=== PATIENT | female | born 1995 | race Caucasian/White ===

== ENCOUNTER 2016-10-15 18:02 | Emergency (ER) | payer OTHER ==
[2016-10-15 18:06] VITALS: BP 122/71; PULSE 72; TEMP 98.4; BMI 25.0
--- NOTE | 2016-10-15 18:21 | PDOC ---
History of Present Illness - General Chief Complaint: Laceration Stated Complaint: LACERATION Time Seen by Provider: 10/15/16 18:11 History Source: Patient Exam Limitations: No Limitations - History of Present Illness Initial Comments: CHIEF COMPLAINT: 21 y/o afebrile female here for laceration to left finger. HISTORY OF PRESENT ILLNESS: The patient states she cut her left ring finger on a sharp edge of her mom's vase. She denies any broken glass or vase pieces. She is UTD on tetanus. She states she cleaned the wound with hydrogen peroxide prior to coming to the ER. She denies numbness/tingling in affected extremity or decreased ROM. Vital signs on arrival are within normal limits. REVIEW OF SYSTEMS: GENERAL/CONSTITUTIONAL: No fever/chills. No weakness. No weight change. MUSCULOSKELETAL: No joint or muscle swelling or pain. No neck or back pain. SKIN: +laceration to left ring finger NEUROLOGIC: No headache, vertigo, loss of consciousness, or loss of sensation. PHYSICAL EXAM: VITAL_SIGNS: within normal limits GENERAL_APPEARANCE: alert, cooperative, mild obvious discomfort. MENTAL_STATUS: speech clear, oriented X 3, responds appropriately to questions. NEURO: motor intact and sensory intact in injured extremity. EXTREMITIES: Full flexion and extension of PIP and DIP of affected finger. 3cm laceration to medial aspect of left 4th digit with active bleeding. SKIN: warm, dry, good color. Past History - Past Medical History Allergies/Adverse Reactions: Allergies Allergy/AdvReac Type Severity Reaction Status Date / Time No Known Allergies Allergy Verified 10/15/16 18:03 - Psycho/Social/Smoking Cessation Hx Anxiety: No Suicidal Ideation: No Smoking History: Never smoked Have you smoked in the past 12 months: No Information on smoking cessation initiated: No Hx Alcohol Use: No Drug/Substance Use Hx: No Substance Use Type: None *Physical Exam - Vital Signs Last Vital Signs Temp Pulse Resp BP Pulse Ox 98.4 F 72 18 122/71 100 10/15/16 18:04 10/15/16 18:04 10/15/16 18:04 10/15/16 18:04 10/15/16 18:04 Procedures - Laceration/Wound Repair Left Medial 4th digit Wound Length: 2.6 to 5.0 cm Wound Explored: clean Wound's Depth, Shape: into muscle, irregular Irrigated w/ Saline: Yes Betadine Prep: Yes Anesthesia: 1% Lidocaine Amount of Anesthetic (ccs): 5 Wound Debrided: moderate Wound Repaired With: Sutures Suture Size/Type: 4:0 Number of Sutures: 6 Medical Decision Making - Medical Decision Making A/P: 21 y/o female with lac to left 4th digit. She is UTD on tetanus and sustained lac on sharp edge of a vase without broken pieces. Pt tolerated suturing well. Will discharge to home with instructions to return to the ER in 8-10 days for suture removal. The patient was instructed to return earlier with any concerning symptoms. The patient verbalizes understanding of all instructions, has no further questions and is awaiting discharge. *DC/Admit/Observation/Transfer Diagnosis at time of Disposition: Laceration of finger Qualifiers: Encounter type: initial encounter Qualified Code(s): S61.219A - Laceration without foreign body of unspecified finger without damage to nail, initial encounter - Discharge Dispostion Disposition: HOME Condition at time of disposition: Improved - Patient Instructions Printed Discharge Instructions: DI for Laceration Repair Additional Instructions: Discharge Instructions: -Keep wound dry for 24 hours; after that wash gently with soap and water -Return to the ER in 8-10 days for suture removal -Return to the ER sooner with any concerning symptoms
== END 2016-10-15 19:15 | disposition home or self-care (01) ==
LOC: JERFT 18:02
PROC: 0HQGXZZ Repair Left Hand Skin, External Approach (ICD-10-PCS; principal; 2016-10-15)
DX: S61.215A Laceration without foreign body of left ring finger without damage to nail, initial encounter (principal); W45.8XXA Other foreign body or object entering through skin, initial encounter; Y93.9 Activity, unspecified; Y92.9 Unspecified place or not applicable
CPT/HCPCS: 12001-25; 99281-25

== ENCOUNTER 2016-10-25 15:10 | Emergency (ER) | payer OTHER ==
[2016-10-25 15:15] VITALS: BP 118/70; PULSE 85; TEMP 98.2; BMI 20.9
--- NOTE | 2016-10-25 15:33 | PDOC ---
Suture Removal/Wound Check HPI - History of Present Illness Chief Complaint: Suture/Staple Removal (other) Stated Complaint: SUTURE/STAPLE REMOVAL Time Seen by Provider: 10/25/16 15:19 History Source: Yes: Patient Exam Limitations: Yes: No Limitations Treated at: [facility] Date of Last ED visit: 10/15/16 - Previous ED Treatment Type of procedure performed on last visit: Yes: Laceration Repair Tetanus Immunization: Yes: Up to Date Past History - Past Medical History Allergies/Adverse Reactions: Allergies No Known Allergies Allergy (Verified 10/25/16 15:12) - Social History Smoking Status: Never smoked Medical Decision Making - Medical Decision Making A/P: 21 y/o afebrile female here for suture removal from her left 4th finger. Pt reports no fevers or redness to affected area. It is day 10 after sutures placed. 6 sutures removed without difficulty. Margins remain intact. Pt has full ROM of finger. Instructed her to return to the ER with any worsening or concerning symptoms. The patient verbalizes understanding of all instructions, has no further questions and is awaiting discharge. *DC/Admit/Observation/Transfer Diagnosis at time of Disposition: Encounter for removal of sutures - Discharge Dispostion Disposition: HOME Condition at time of disposition: Good - Referrals Referrals: Rebecca Marcos MD [Primary Care Provider] - - Patient Instructions Printed Discharge Instructions: DI for Suture Removal
== END 2016-10-25 15:39 | disposition home or self-care (01) ==
LOC: JERFT 15:10
DX: Z48.02 Encounter for removal of sutures (principal)
CPT/HCPCS: 99281-25

== ENCOUNTER 2017-01-04 01:03 | Emergency (ER) | payer OTHER ==
--- NOTE | 2017-01-04 01:05 | PDOC ---
History of Present Illness - General Chief Complaint: Migraine Headache Stated Complaint: MIGRANE/DIFF BREATHING Time Seen by Provider: 01/04/17 01:05 History Source: Patient, Significant Other Exam Limitations: No Limitations - History of Present Illness Initial Comments: 21 yo F no significant PMH presents with diffuse headache x2 days, worse than prior headaches. She has history of migraines in the past, but this is much more severe. She took motrin without any relief. Called EMS because she was having numbness in her arms and legs, hyperventilating. She c/o diffuse weakness , photophobia, nausea, vomiting. No fever, no vision changes. Past History - Past Medical History Allergies/Adverse Reactions: Allergies Allergy/AdvReac Type Severity Reaction Status Date / Time No Known Allergies Allergy Verified 01/04/17 01:05 Home Medications: Ambulatory Orders NK [No Known Home Medication] 01/04/17 - Psycho/Social/Smoking Cessation Hx Anxiety: No Suicidal Ideation: No Smoking History: Never smoked Have you smoked in the past 12 months: No Hx Alcohol Use: No Drug/Substance Use Hx: No Substance Use Type: None Review of Systems - Review of Systems Able to Perform ROS?: Yes Comments:: GENERAL/CONSTITUTIONAL: No fever or chills. +Weakness. HEAD, EYES, EARS, NOSE AND THROAT: No change in vision. No ear pain or discharge. No sore throat. CARDIOVASCULAR: No chest pain or shortness of breath. RESPIRATORY: No cough, wheezing, or hemoptysis. GASTROINTESTINAL: No nausea, vomiting, diarrhea or constipation. GENITOURINARY: No dysuria, frequency, or change in urination. MUSCULOSKELETAL: No joint or muscle swelling or pain. No neck or back pain. SKIN: No rash NEUROLOGIC: +Headache. No vertigo, loss of consciousness, or change in sensation. +Weakness to limbs. ENDOCRINE: No increased thirst. No abnormal weight change. HEMATOLOGIC/LYMPHATIC: No anemia, easy bleeding, or history of blood clots. ALLERGIC/IMMUNOLOGIC: No hives or skin allergy. *Physical Exam - Physical Exam Comments: GENERAL: Awake, alert, and fully oriented. Anxious, tearful. Appears in pain. HEAD: No signs of trauma EYES: PERRLA, EOMI, sclera anicteric, conjunctiva clear ENT: Auricles normal inspection, hearing grossly normal, nares patent, oropharynx clear without exudates. Moist mucosa NECK: Normal ROM, supple, no lymphadenopathy, JVD, or masses LUNGS: Breath sounds equal, clear to auscultation bilaterally. No wheezes, and no crackles HEART: Regular rate and rhythm, normal S1 and S2, no murmurs, rubs or gallops ABDOMEN: Soft, nontender, normoactive bowel sounds. No guarding, no rebound. No masses EXTREMITIES: Normal range of motion, no edema. No clubbing or cyanosis. No cords, erythema, or tenderness NEUROLOGICAL: Cranial nerves II through XII grossly intact. Speaking quietly. Motor and sensation grossly intact. SKIN: Warm, Dry, normal turgor, no rashes or lesions noted. ED Treatment Course - LABORATORY CBC & Chemistry Diagram: 01/04/17 01:28 01/04/17 01:28 Medical Decision Making - Medical Decision Making 01/04/17 02:40 Patient improved significantly with IV fluids and meds. Stable for DC with outpatient f/u. I discussed with her aunt (with whom she lives) at length. Aunt requested list of psychiatrists, as patient has had increasing stress recently after losing her grandmother, and has complicated family relationships, may need to speak with a therapist. I provided with a list. *DC/Admit/Observation/Transfer Diagnosis at time of Disposition: Headache Qualifiers: Headache type: unspecified Headache chronicity pattern: acute headache Intractability: not intractable Qualified Code(s): R51 - Headache - Discharge Dispostion Disposition: HOME Condition at time of disposition: Stable Admit: No - Referrals Referrals: Rebecca Marcos MD [Primary Care Provider] - - Patient Instructions Printed Discharge Instructions: DI for Headache
[2017-01-04 01:06] VITALS: BP 118/87; PULSE 75; TEMP 98.7; BMI 26.6
[2017-01-04] MEDS ORDERED: SODIUM CHLORIDE 1,000 ML IV STA (01:16)
[2017-01-04] MEDS ORDERED: KETOROLAC TROMETHAMINE 30 MG/1 ML VIAL IVPUSH ONE (01:16)
[2017-01-04] MEDS ORDERED: METOCLOPRAMIDE HCL INJECTION 10 MG/2 ML VIAL IVPB ONE (01:16)
[2017-01-04] MEDS ORDERED: KETOROLAC TROMETHAMINE 30 MG/1 ML VIAL ONE (01:23)
[2017-01-04] MEDS ORDERED: METOCLOPRAMIDE HCL INJECTION 10 MG/2 ML VIAL ONE (01:23)
[2017-01-04 01:53] LABS: BASOPHIL 0.3 % (0-2.0); MCH 28.7 pg (25.7-33.7); MCHC 33.8 g/dl (32.0-36.0); MEAN CELL VOLUME 85.1 fl (80-96); MEAN PLT VOLUME 8.2 fl (7.5-11.1); NEUTROPHILS 59.2 % (42.8-82.8); PLATELET COUNT 206 K/MM3 (134-434); RDW 13.9 % (11.6-15.6); WHITE BLOOD COUNT 5.2 K/mm3 (4.0-10.0)
[2017-01-04 02:35] LABS: ALBUMIN 3.9 g/dl (3.4-5.0); ANION GAP 9 (8-16); BILIRUBIN,TOTAL 0.5 mg/dL (0.2-1.0); CO2 24 mmol/L (21-32); CREATININE 0.6 mg/dL (0.55-1.02); GLUCOSE,RANDOM 99 mg/dL (74-106); SGOT/AST 15 U/L (15-37); SGPT/ALT 18 U/L (12-78); TOT PROT 7.3 g/dl (6.4-8.2)
[2017-01-04 02:36] LABS: ALK PHOS 103 U/L (45-117)
== END 2017-01-04 02:43 | disposition home or self-care (01) ==
LOC: JER 01:03
PROC: 3E0333Z Introduction of Anti-inflammatory into Peripheral Vein, Percutaneous Approach (ICD-10-PCS; principal; 2017-01-04)
PROC: 3E033GC Introduction of Other Therapeutic Substance into Peripheral Vein, Percutaneous Approach (ICD-10-PCS; 2017-01-04)
PROC: 3E033GC Introduction of Other Therapeutic Substance into Peripheral Vein, Percutaneous Approach (ICD-10-PCS; 2017-01-04)
DX: R51 Headache (principal)
CPT/HCPCS: 36415; 80053; 84703; 85025; 96374; 96375; 99283-25

== ENCOUNTER 2017-03-15 09:39 | Emergency (ER) | payer OTHER ==
[2017-03-15 09:49] VITALS: BP 126/60; PULSE 74; TEMP 97.8; BMI 25.8
--- NOTE | 2017-03-15 10:23 | PDOC ---
History of Present Illness - General History Source: Patient Exam Limitations: No Limitations - History of Present Illness Initial Comments: 03/15/17 11:50 21 y/o F with no PMHx presents to the ED with right knee pain for a month. Patient reports that she tripped and fell, landing on her right knee onto a rock. She states she felt a pop when landing, and her right knee swelled up immediately. She reports the pain is worse with bending and walking. She also reports that the knee pain radiates up to her right hip and down to her right ankle. She hit her right leg again, against a glass table which exacerbated the pain. She has been walking with her leg straight to alleviate some pain. She went to an ER in [place] who told her to ice and elevate. She did not get an XR of her right knee while at the ER. She reports some relief with ice and elevation, but reports that the pain is constant. She denies numbness, tingling , weakness. Denies chest pain, SOB. <Sandee Simeon - Last Filed: 03/15/17 11:50> <Viry Hendricks - Last Filed: 03/15/17 12:42> - General Chief Complaint: Pain, Acute Stated Complaint: LEG PAIN Time Seen by Provider: 03/15/17 10:22 Past History <Sandee Simeon - Last Filed: 03/15/17 11:50> - Past Medical History Other medical history: DENIES - Immunization History Immunization Up to Date: Yes - Suicide/Smoking/Psychosocial Hx Smoking History: Never smoked Have you smoked in the past 12 months: No Information on smoking cessation initiated: No Hx Alcohol Use: No Drug/Substance Use Hx: No Substance Use Type: None <Viry Hendricks - Last Filed: 03/15/17 12:42> - Past Medical History Allergies/Adverse Reactions: Allergies Allergy/AdvReac Type Severity Reaction Status Date / Time No Known Allergies Allergy Verified 03/15/17 09:45 Home Medications: Ambulatory Orders NK [No Known Home Medication] 01/04/17 Review of Systems - Review of Systems Able to Perform ROS?: Yes Comments:: 03/15/17 11:51 GENERAL/CONSTITUTIONAL: No fever or chills. No weakness. HEAD, EYES, EARS, NOSE AND THROAT: No change in vision. No ear pain or discharge. No sore throat. CARDIOVASCULAR: No chest pain or shortness of breath. RESPIRATORY: No cough, wheezing, or hemoptysis. GASTROINTESTINAL: No nausea, vomiting, diarrhea or constipation. GENITOURINARY: No dysuria, frequency, or change in urination. MUSCULOSKELETAL: (+) right knee pain, right hip pain, right ankle pain. No neck or back pain. SKIN: No rash NEUROLOGIC: No headache, vertigo, loss of consciousness, or change in strength/ sensation. ENDOCRINE: No increased thirst. No abnormal weight change. HEMATOLOGIC/LYMPHATIC: No anemia, easy bleeding, or history of blood clots. ALLERGIC/IMMUNOLOGIC: No hives or skin allergy. <Sandee Simeon - Last Filed: 03/15/17 11:50> *Physical Exam - Vital Signs Last Vital Signs Temp Pulse Resp BP Pulse Ox 97.8 F 74 146 H 126/60 100 03/15/17 09:45 03/15/17 09:45 03/15/17 09:45 03/15/17 09:45 03/15/17 09:45 - Physical Exam Comments: 03/15/17 11:51 GENERAL: Awake, alert, and fully oriented, in no acute distress HEAD: No signs of trauma EYES: PERRLA, EOMI, sclera anicteric, conjunctiva clear ENT: Auricles normal inspection, hearing grossly normal, nares patent, oropharynx clear without exudates. Moist mucosa NECK: Normal ROM, supple, no lymphadenopathy, JVD, or masses LUNGS: Breath sounds equal, clear to auscultation bilaterally. No wheezes, and no crackles HEART: Regular rate and rhythm, normal S1 and S2, no murmurs, rubs or gallops ABDOMEN: Soft, nontender, normoactive bowel sounds. No guarding, no rebound. No masses EXTREMITIES: Mild laxity with anterior drawer, right compared to left. Trace medial effusion of the right knee. Limited ROM secondary to pain. No warmth or redness. No clubbing or cyanosis. No cords. NEUROLOGICAL: Cranial nerves II through XII grossly intact. Normal speech. SKIN: Warm, Dry, normal turgor, no rashes or lesions noted. <Sandee Simeon - Last Filed: 03/15/17 11:50> - Vital Signs Last Vital Signs Temp Pulse Resp BP Pulse Ox 97.8 F 74 146 H 126/60 100 03/15/17 09:45 03/15/17 09:45 03/15/17 09:45 03/15/17 09:45 03/15/17 09:45 <Viry Hendricks - Last Filed: 03/15/17 12:42> ED Treatment Course - ADDITIONAL ORDERS Additional order review: Laboratory Results 03/15/17 10:50 Urine Color Yellow Urine Appearance Slcloudy Urine pH 5.0 Urine Protein Negative Urine Glucose (UA) Negative Urine Ketones Negative Urine Blood 1+ H Urine Nitrite Negative Urine Bilirubin Negative Urine Urobilinogen Negative Urine RBC None Urine WBC 2 Ur Epithelial Cells Rare Urine Bacteria Rare Urine Mucus Rare Urine HCG, Qual Negative - Medications Given in the ED: ED Medications Discontinued Medications Generic Name Dose Route Start Last Admin Trade Name Freq PRN Reason Stop Dose Admin Ketorolac Tromethamine 60 mg 03/15/17 10:59 03/15/17 11:12 Toradol Injection - IM 03/15/17 11:00 60 mg ONCE ONE Administration <Sandee Simeon - Last Filed: 03/15/17 11:50> Medical Decision Making - Medical Decision Making 03/15/17 12:40 21yo female with 1 month of R knee pain after falling on the knee. -xray -ucg -pain control 03/15/17 12:40 suspect poss internal derangement of the knee given pop when she fell and pain since 03/15/17 12:40 xrays reviewed. recommened knee immobilizer and crutches and follow up with ortho 03/15/17 12:40 discussed all reasons to return to the ED and need for follow up. Answered all questions. Pt stable for d/c to home <Viry Hendricks - Last Filed: 03/15/17 12:42> *DC/Admit/Observation/Transfer - Attestations Scribe Attestion: 03/15/17 11:51 Documentation prepared by Sandee Simeon, acting as certified medical assistant for Viry Hendricks DO. <Sandee Simeon - Last Filed: 03/15/17 11:50> - Discharge Dispostion Admit: No - Attestations Physician Attestion: 03/15/17 12:41 I, Dr. Viry Hendricks, DO, attest that this document has been prepared under my direction and personally reviewed by me in its entirety. I further attest, that it accurately reflects all work, treatment, procedures and medical decision -making performed by me. <Viry Hendricks - Last Filed: 03/15/17 12:42> Diagnosis at time of Disposition: Right knee pain - Discharge Dispostion Disposition: HOME Condition at time of disposition: Stable - Referrals Referrals: Rebecca Marcos MD [Primary Care Provider] - Luisito Pettit MD [Staff Physician] - - Patient Instructions Printed Discharge Instructions: DI for Knee Pain Additional Instructions: Please follow up with orthopedics and your PMD. Please return to the Ed with any further concerns or complaints.
[2017-03-15] MEDS ORDERED: KETOROLAC TROMETHAMINE 60 MG/2 ML VIAL IM ONE (10:59)
[2017-03-15] MEDS ORDERED: KETOROLAC TROMETHAMINE 30 MG/1 ML VIAL ONE (11:00)
[2017-03-15] MEDS ORDERED: KETOROLAC TROMETHAMINE 60 MG/2 ML VIAL ONE (11:01)
[2017-03-15 11:14] LABS: URINE APPEARANCE SLCLOUDY; URINE BILIRUBIN NEGATIVE (NEGATIVE); URINE BLOOD 1+ (NEGATIVE); URINE COLOR YELLOW; URINE GLUCOSE (UA) NEGATIVE (NEGATIVE); URINE KETONE NEGATIVE (NEGATIVE); URINE LEUK ESTERASE NEGATIVE (NEGATIVE); URINE NITRITE NEGATIVE (NEGATIVE); URINE PROTEIN NEGATIVE (NEGATIVE); URINE UROBILINOGEN NEGATIVE mg/dL (0.2-1.0)
[2017-03-15 11:30] LABS: URINE BACTERIA RARE /hpf (NONE SEEN); URINE MUCUS RARE; URINE WBC 2 /hpf (3-5)
== END 2017-03-15 12:48 | disposition home or self-care (01) ==
LOC: JERFT 09:39 → JER 09:39
PROC: 3E0233Z Introduction of Anti-inflammatory into Muscle, Percutaneous Approach (ICD-10-PCS; principal; 2017-03-15)
PROC: 2W3QX1Z Immobilization of Right Lower Leg using Splint (ICD-10-PCS; 2017-03-15)
DX: M25.561 Pain in right knee (principal)
CPT/HCPCS: 73564-TC-RT; 81003; 81015; 84703; 99282-25

== ENCOUNTER 2017-06-05 18:46 | Emergency (ER) | payer OTHER ==
[2017-06-05 19:00] VITALS: BP 120/84; PULSE 88; TEMP 98.1; BMI 25.8
[2017-06-05] MEDS ORDERED: IBUPROFEN 600 MG TABLET (FP) PO ONE ×2 (19:57→19:59)
--- NOTE | 2017-06-05 19:58 | PDOC ---
History of Present Illness - General Chief Complaint: Pain Stated Complaint: PAIN Time Seen by Provider: 06/05/17 19:21 History Source: Patient Exam Limitations: No Limitations - History of Present Illness Initial Comments: 06/05/17 19:59 Chief complaint: Right knee pain, left foot pain, left elbow pain, and bilateral hand pain History of present illness: Patient is 21-year-old female with no significant medical history except for scoliosis here today compared with multiple complaints. Patient complaining of continuous right knee anterior and posterior pain since falling on it 03/15/2017. Patient reports that pain is constant and that she didn't follow-up with orthopedist but did not go back for any further imaging. Patient has crutches and a knee immobilizer is at home. Patient has been limping for the last 2 weeks. Patient denies any reinjury to her right knee. Patient reports that her left elbow she felt a snap last week when straightening her left elbow. Patient does not have any swelling or deformity of her left elbow noted pain is aching in his 8 presently. Patient also reports last week that a child at her job tripped on her left foot bending her toes patient reports having pain in this area for the last week the pain currently as a 6. Patient also reports having pain of PIP joints on each finger with swelling of joints and stiffness especially in the morning 2 weeks. Patient denies any fever. Patient denies any injury to her hands. Patient reports a family history of rheumatoid arthritis. Past History - Past Medical History Allergies/Adverse Reactions: Allergies Allergy/AdvReac Type Severity Reaction Status Date / Time No Known Allergies Allergy Verified 06/05/17 19:00 Home Medications: Ambulatory Orders Naproxen [Naprosyn -] 500 mg PO BID PRN #14 tablet 06/05/17 COPD: No - Immunization History Immunization Up to Date: Yes - Suicide/Smoking/Psychosocial Hx Smoking History: Never smoked Have you smoked in the past 12 months: No Hx Alcohol Use: No Drug/Substance Use Hx: No Substance Use Type: None *Physical Exam - Vital Signs Last Vital Signs Temp Pulse Resp BP Pulse Ox 98.1 F 88 20 120/84 100 06/05/17 18:57 06/05/17 18:57 06/05/17 18:57 06/05/17 18:57 06/05/17 18:57 - Physical Exam General Appearance: Yes: Appropriately Dressed Respiratory/Chest: positive: Lungs Clear, Normal Breath Sounds. negative: Chest Tender, Respiratory Distress Cardiovascular: positive: Regular Rhythm, Regular Rate, S1, S2 Vascular Pulses: Doralis-Pedis (L): 4+ Extremity: positive: Normal Capillary Refill, Normal Inspection (rt.knee, left elbow, left foot ), Normal Range of Motion (rt. knee, left elbow, left foot and all toes), Tender (rt.knee anterior/posterior, left elbow, left foot lateral, no deformity toes left foot ), Swelling (b/l pip jts all fingers ), Other (b/l pip jt edema/tender each finger, rt. lateral knee click felt, negative anterior/ ;posterior drawer rt. knee) Integumentary: positive: Normal Color (') Neurologic: positive: Alert, Normal Response, Respond to painful stimul (b/l hands, left elbow, left foot/toes, ) ED Treatment Course - ADDITIONAL ORDERS Additional order review: Laboratory Results 06/05/17 19:30 Urine HCG, Qual Negative Medical Decision Making - Medical Decision Making 06/05/17 20:02 Patient is 21-year-old female with no significant medical history except for scoliosis here today compared with multiple complaints. Patient complaining of continuous right knee anterior and posterior pain since falling on it 2016. Patient reports that pain is constant and that she didn't follow-up with orthopedist but did not go back for any further imaging. Patient has crutches and a knee immobilizer is at home. Patient has been limping for the last 2 weeks. Patient denies any reinjury to her right knee. She reports that her right knee locks up at times. Patient reports that her left elbow she felt a snap last week when straightening her left elbow. Patient does not have any swelling or deformity of her left elbow noted pain is aching in his 8 presently. Patient also reports last week that a child at her job tripped on her left foot bending her toes patient reports having pain in this area for the last week the pain currently as a 6. Patient also reports having pain of PIP joints on each finger with swelling of joints and stiffness especially in the morning 2 weeks. Patient denies any fever. Patient denies any injury to her hands. Patient reports a family history of rheumatoid arthritis. Right knee pain chronic left elbow pain left foot pain r/ofracture b/l pip jt pain wth edema of jts PLAN: Urine hcg negative xray left foot rule out fracture negative Ibuprofen 600 mg po now Follow up with orthopedist Follow up with Provider Enrollment Specialist 06/05/17 20:13 *DC/Admit/Observation/Transfer Diagnosis at time of Disposition: Left elbow pain, Polyarthralgia Knee pain, right Qualifiers: Chronicity: chronic Qualified Code(s): M25.561 - Pain in right knee; G89.29 - Other chronic pain; G89.29 - Other chronic pain - Discharge Dispostion Disposition: HOME Condition at time of disposition: Stable - Referrals Referrals: Rebecca Marcos MD [Primary Care Provider] - Mycahl Young MD [Staff Physician] - Kennedy Huizar MD [Staff Physician] - - Patient Instructions Additional Instructions: Reapply your knee immobilizer to right knee and use crutches Follow up with orthopedist as soon as possible for further evaluation Follow-up with rn endoscopy for further evaluation of swelling of joints and hands Return to emergency room if symptoms worsen any fever or increased swelling of joints of hands or any new symptoms develop patient voiced understanding of discharge instructions and all questions were answered - Post Discharge Activity Forms/Work/School Notes: Back to Work
== END 2017-06-05 20:19 | disposition home or self-care (01) ==
LOC: JERFT 18:46
DX: M25.561 Pain in right knee (principal); M25.522 Pain in left elbow; G89.29 Other chronic pain; M41.9 Scoliosis, unspecified
CPT/HCPCS: 73630-TC-LT; 84703; 99281-25

== ENCOUNTER 2017-06-22 17:51 | Emergency (ER) | payer OTHER ==
[2017-06-22 18:11] VITALS: BP 130/69; PULSE 104; TEMP 98.6; BMI 25.0
--- NOTE | 2017-06-22 18:11 | PDOC ---
Rapid Medical Evaluation Time Seen by Provider: 06/22/17 18:07 Medical Evaluation: Allergies Allergy/AdvReac Type Severity Reaction Status Date / Time No Known Allergies Allergy Verified 06/05/17 19:00 I have performed a brief in-person evaluation of this patient. The patient presents with a chief complaint of: intermittent nose bleed x 1 week; lightheaded Pertinent physical exam findings: Active bleeding from b/l nares, 5 inch long x 2 inch wide clot from left nare. I have ordered the following: labs, ekg The patient will proceed to the ED for further evaluation.
[2017-06-22] MEDS ORDERED: SODIUM CHLORIDE FOR INHALATION 3 ML VIAL.NEB IH ONE (18:44)
--- NOTE | 2017-06-22 18:56 | PDOC ---
History of Present Illness - General Chief Complaint: Nasal Bleeding Stated Complaint: NOSE BLEED Time Seen by Provider: 06/22/17 18:07 - History of Present Illness Initial Comments: 06/22/17 18:52 CHIEF COMPLAINT: nosebleed HISTORY OF PRESENT ILLNESS: 21 yo F with recently diagnosed "possible arthritis " presents to fast track with intermittent nosebleed x 1 week. Patient reports that she had 2 days of nosebleed, then "it stopped for four days", and then it began again yesterday "three times", and today it bled for at least 1 hour before she came to the ER. In triage she had a large clot come out of the nose and both nostrils were actively bleeding. On exam nosebleeds have resolved. Patient reports "a little" lightheadedness but denies any chest pain, palpitations, or shortness of breath. Patient and mother deny any use of anticoagulants or antiplatelet medications. PAST MEDICAL HISTORY: as per HPI FAMILY HISTORY: Denies SOCIAL HISTORY: Denies tobacco, alcohol, illicit drug use. SURGICAL HISTORY: Denies ALLERGIES: No known drug allergies REVIEW OF SYSTEMS General/Constitutional: Denies fever or chills. Denies weakness, weight change. HEENT: Intermittent nosebleeds x 1 week. Denies change in vision. Denies ear pain or discharge. Denies sore throat. Cardiovascular: Denies chest pain or shortness of breath. Respiratory: Denies cough, wheezing, or hemoptysis. Gastrointestinal: Denies nausea, vomiting, diarrhea or constipation. Denies rectal bleeding. Genitourinary: Denies dysuria, frequency, or change in urination. Musculoskeletal: Denies joint or muscle swelling or pain. Denies neck or back pain. Skin and breasts: Denies rash or easy bruising. Neurologic: "A little lightheadedness." Denies vertigo, loss of consciousness, or loss of sensation. PHYSICAL EXAM General Appearance: Well-appearing, appropriately dressed. No apparent distress. HEENT: Dried blood to b/l nares, no active bleeding. EOMI, PERRLA. No conjunctival pallor. No photophobia, scleral icterus. Respiratory/Chest: Lungs CTAB. No shortness of breath, chest tenderness, respiratory distress, accessory muscle use. No crackles, rales, rhonchi, stridor , wheezing, dullness Cardiovascular: RRR. S1, S2. Gastrointestinal/Abdominal: Normal bowel sounds. Abdomen soft, non-distended. No tenderness or rebound tenderness. No organomegaly, pulsatile mass, guarding , hernia, hepatomegaly, splenomegaly. Musculoskeletal/Extremities: Normal inspection. FROM of all extremities, normal capillary refill. Pelvis Stable. No CVA tenderness. No tenderness to extremities, pedal edema, swelling, erythema or deformity. Integumentary: Appropriate color, dry, warm. No cyanosis, erythema, jaundice or rash Neurologic: clinical coordinator II-XII intact. Fully oriented, alert. Appropriate mood/affect. Motor strength 5/5. No appreciable EOM palsy, facial droop or sensory deficit. Past History - Past Medical History Allergies/Adverse Reactions: Allergies Allergy/AdvReac Type Severity Reaction Status Date / Time No Known Allergies Allergy Verified 06/22/17 18:11 Home Medications: Ambulatory Orders Nebulizer [Sinustar] 1 each ASDIR #1 each 06/22/17 Oxymetazoline HCl [Afrin] 2 spray NS BID #1 mist 06/22/17 Sodium Chloride Inhalation [Normal Saline For Inhalation -] 3 ml ASDIR #30 vial.neb 06/22/17 COPD: No - Immunization History Immunization Up to Date: Yes - Suicide/Smoking/Psychosocial Hx Smoking History: Never smoked Have you smoked in the past 12 months: No Hx Alcohol Use: No Drug/Substance Use Hx: No Substance Use Type: None *Physical Exam - Vital Signs Last Vital Signs Temp Pulse Resp BP Pulse Ox 98.6 F 104 H 20 130/69 100 06/22/17 18:07 06/22/17 18:07 06/22/17 18:07 06/22/17 18:07 06/22/17 18:07 ED Treatment Course - LABORATORY CBC & Chemistry Diagram: 06/22/17 18:30 06/22/17 18:30 Medical Decision Making - Medical Decision Making 06/22/17 18:56 21 yo F with recently diagnosed "possible arthritis" presents to fast track with intermittent nosebleed x 1 week. -labs, EKG -saline nebs CBC wnl, CMP hemolyzed but given clinical presentation, no longer needed. Will discharge with close f/u with ENT. *DC/Admit/Observation/Transfer Diagnosis at time of Disposition: Epistaxis - Discharge Dispostion Disposition: HOME Condition at time of disposition: Stable Admit: No - Prescriptions Prescriptions: Nebulizer [Sinustar] 1 each MC ASDIR #1 each Oxymetazoline HCl [Afrin] 2 spray NS BID #1 mist Sodium Chloride Inhalation [Normal Saline For Inhalation -] 3 ml ASDIR #30 vial.neb - Referrals Referrals: Ray Varghese MD [Staff Physician] - - Patient Instructions Printed Discharge Instructions: DI for Nosebleed, Nosebleeds (Alternative Therapy) Additional Instructions: Please use medications as prescribed. As discussed, we recommend only using Afrin for a short period of time to avoid rebound effects. Please follow up with ENT within the next 2-3 days. If you develop any persistent nosebleed, dizziness, lightheadedness, chest pain, palpitations, shortness of breath, or any new or worsening symptoms, please return to the ER. - Post Discharge Activity
[2017-06-22 19:04] LABS: BASO % 0.7 % (0-2.0); EOS % 1.7 % (0-4.5); HEMATOCRIT 33.5 % (32.4-45.2); LYMPH % 19.2 % (8-40); MCH 27.7 pg (25.7-33.7); MEAN CELL VOLUME 83.9 fl (80-96); MEAN PLT VOLUME 8.5 fl (7.5-11.1); MONO % 11.8 % (3.8-10.2); NEUT % 66.6 % (42.8-82.8); PLATELET COUNT 276 K/MM3 (134-434); RBC 3.99 M/mm3 (3.60-5.2); RDW 13.4 % (11.6-15.6); WHITE BLOOD COUNT 5.1 K/mm3 (4.0-10.0)
[2017-06-22 19:15] LABS: INR 1.05 (0.82-1.09); PROTHROMBIN TIME (PATIENT) 11.9 SEC (9.98-11.88)
--- NOTE | 2017-06-23 12:29 | EKG ---
Test Reason : Blood Pressure : / mmHG Vent. Rate : 075 BPM Atrial Rate : 075 BPM P-R Int : 168 ms QRS Dur : 084 ms QT Int : 382 ms P-R-T Axes : 047 064 046 degrees QTc Int : 426 ms NORMAL SINUS RHYTHM WITH SINUS ARRHYTHMIA NORMAL ECG NO PREVIOUS ECGS AVAILABLE Confirmed by MISTI EVERETT MD ([id number]) on 06/23/2017 12:29:02 PM Referred By: MR Confirmed By:MISTI EVERETT MD
== END 2017-06-22 19:28 | disposition home or self-care (01) ==
LOC: JERFT 17:51
PROC: 3E0F7GC Introduction of Other Therapeutic Substance into Respiratory Tract, Via Natural or Artificial Opening (ICD-10-PCS; principal; 2017-06-22)
DX: R04.0 Epistaxis (principal)
CPT/HCPCS: 36415; 85025; 85610; 93005; 93010; 99281-25

== ENCOUNTER 2017-11-05 15:18 | Emergency (ER) | payer OTHER ==
[2017-11-05 15:30] VITALS: BMI 23.7
--- NOTE | 2017-11-05 15:41 | PDOC ---
History of Present Illness - General Chief Complaint: Psychiatric Stated Complaint: CHEST PAIN, BLURRY VISION Time Seen by Provider: 11/05/17 15:38 - History of Present Illness Initial Comments: 11/05/17 15:39 22 yo F with h/o arthritis who p/w VILLAR and N/V. Patient reports waking up this AM with acute SOB, stable, R sided pressure like, retorobital headache, R sided blurry vision, upper lip tingling, distal UE tingling, lightheadedness, diffuse crampy abdominal pain, loose watery stool x 1, tremulousness,diffuse chest pressure/tightness, palpitations, and feeling of "panic." Denies social triggers. No identifiable triggers or alleviators. Patient reports being asymptomatic yesterday evening. Reports similar symptoms of VILLAR, nervousness/ panic, and chest discomfort in past. Denies SI, HI. Denies F/C, orthopnea, cough, leg swelling/pain, hemtoptysis, tinnitus, hearing loss, neck stiffness/pain, constipation, urinary complaints, weakness, LOC. PMHx: as noted above. Denies h/o PE/DVT. Does not f/w psych. ROS: as noted above SHx: Denies Etoh, IVDA, or tobacco use. Denies recent traveling. Not on OCP. No recent sick contacts. FHx: No h/o sudden cardiac . Allergies: NKDA Med: Prednisone. Past History - Past Medical History Allergies/Adverse Reactions: Allergies Allergy/AdvReac Type Severity Reaction Status Date / Time No Known Allergies Allergy Verified 11/05/17 15:30 Home Medications: Ambulatory Orders Nebulizer [Sinustar] 1 each ASDIR #1 each 06/22/17 Oxymetazoline HCl [Afrin] 2 spray NS BID #1 mist 06/22/17 Sodium Chloride Inhalation [Normal Saline For Inhalation -] 3 ml ASDIR #30 vial.neb 06/22/17 COPD: No Other medical history: low iron, low vitamin d, rheumatoid arthritis - Immunization History Immunization Up to Date: Yes - Suicide/Smoking/Psychosocial Hx Smoking History: Never smoked Have you smoked in the past 12 months: No Hx Alcohol Use: No Drug/Substance Use Hx: No Substance Use Type: None Review of Systems - Review of Systems Comments:: 11/05/17 15:40 GENERAL/CONSTITUTIONAL: No fever or chills. No weakness. HEAD, EYES, EARS, NOSE AND THROAT:+change in vision. No ear pain or discharge. No sore throat. CARDIOVASCULAR:+ chest pain and shortness of breath RESPIRATORY: No cough, wheezing, or hemoptysis. GASTROINTESTINAL: + nausea, vomiting, and diarrhea. No constipation. GENITOURINARY: No dysuria, frequency, or change in urination. MUSCULOSKELETAL: No joint or muscle swelling or pain. No neck or back pain. SKIN: No rash NEUROLOGIC: + headache, lighteadedness, and change in strength/sensation . No loss of consciousness, vertigo. ENDOCRINE: No increased thirst. No abnormal weight change HEMATOLOGIC/LYMPHATIC: No anemia, easy bleeding, or history of blood clots. ALLERGIC/IMMUNOLOGIC: No hives or skin allergy. *Physical Exam - Vital Signs Last Vital Signs Temp Pulse Resp BP Pulse Ox 97 F L 76 18 127/75 100 11/05/17 15:21 11/05/17 15:21 11/05/17 15:21 11/05/17 15:21 11/05/17 15:21 - Physical Exam Comments: 11/05/17 15:40 GENERAL: Awake, alert, and fully oriented, in no acute distress HEAD: No signs of trauma, normocephalic, atraumatic EYES: OD 20/50, 0S 20/30 PERRLA, EOMI, sclera anicteric, conjunctiva clear ENT: Auricles normal inspection, hearing grossly normal, nares patent, oropharynx clear without exudates. Moist mucosa NECK: Normal ROM, supple, no lymphadenopathy, JVD, or masses LUNGS: No distress, speaks full sentences, clear to auscultation bilaterally HEART: Regular rate and rhythm, normal S1 and S2, no murmurs, rubs or gallops, peripheral pulses normal and equal bilaterally. ABDOMEN: Soft, lower abdominal ttp, normoactive bowel sounds. No guarding, no rebound. No masses. Neg CVA ttp. EXTREMITIES : Normal inspection, Normal range of motion, no edema. No clubbing or cyanosis. NEUROLOGICAL: Cranial nerves II through XII grossly intact. Normal speech, normal gait, no focal sensorimotor deficits SKIN: Warm, Dry, normal turgor, no rashes or lesions noted ED Treatment Course - LABORATORY CBC & Chemistry Diagram: 11/05/17 15:45 11/05/17 15:45 Medical Decision Making - Medical Decision Making 11/05/17 16:13 22 yo F with h/o arthritis who p/w acute SOB, stable R sided pressure like, retorobital headache, R sided blurry vision, diffuse crampy abdominal pain, loose watery stool x 1,chest pressure/tightness, palpitations, and N/V. VSS, A& Ox3. ACS/VT r/o. Perc negative PE. Patient with lower abdominal ttp. R/o appendicitis vs. gastroenteritis, colitis, or cystitis. Will consider anxiety related or psychiatric induced mood disorder. Will assess for thyroid dysfunction, electrolyte abnml, toxic or metabolic derangements, acid-base disturbances, or underlying infection. ED Course: CBC, CMP, TSH, PT/INR, Cardiac, HCG UA CT AP NS, Zofran, Toradol Patient vomitted in ED room. 11/05/17 17:06 EKG: NSR, with absent SAIGE, STD, or TWI. Nml axis and interval duration. 11/05/17 18:36 CBC,CMP: Unremarkable UA: Neg 11/05/17 19:21 TSH: Neg Trop: Neg UDS: Neg Patient stable for d/c with return precautions. Advised to f/u with PMD. *DC/Admit/Observation/Transfer Diagnosis at time of Disposition: Migraine Nausea & vomiting Qualifiers: Vomiting type: unspecified Vomiting Intractability: non-intractable Qualified Code(s): R11.2 - Nausea with vomiting, unspecified - Discharge Dispostion Condition at time of disposition: Stable - Referrals - Patient Instructions Printed Discharge Instructions: DI for Panic Disorder, DI for Migraine Additional Instructions: Please return to the emergency department with any new or worsening symptoms or concerns. Please follow up with your primary care physician within 72 hours. - Post Discharge Activity - Attestations Physician Attestion: 11/05/17 15:41 I attest to the information provided in this note.
[2017-11-05] MEDS ORDERED: ONDANSETRON 4 MG/2 ML VIAL IVPUSH ONE (16:07)
[2017-11-05] MEDS ORDERED: SODIUM CHLORIDE 1,000 ML IV STA (16:07)
[2017-11-05 16:13] LABS: BASO % 0.6 % (0-2.0); EOS % 1.6 % (0-4.5); HEMATOCRIT 33.5 % (32.4-45.2); HEMOGLOBIN 10.9 GM/dL (10.7-15.3); LYMPH % 14.4 % (8-40); MCH 24.9 pg (25.7-33.7); MCHC 32.4 g/dl (32.0-36.0); MEAN CELL VOLUME 76.8 fl (80-96); MONO % 7.1 % (3.8-10.2); NEUT % 76.3 % (42.8-82.8); PLATELET COUNT 276 K/MM3 (134-434); RBC 4.36 M/mm3 (3.60-5.2); RDW 15.9 % (11.6-15.6); WHITE BLOOD COUNT 7.6 K/mm3 (4.0-10.0)
[2017-11-05] MEDS ORDERED: ONDANSETRON 4 MG/2 ML VIAL ONE (16:14)
--- NOTE | 2017-11-05 16:28 | PDOC ---
Attending Attestation - Resident Resident Name: Cain Andrews - ED Attending Attestation I have performed the following: I have examined & evaluated the patient, The case was reviewed & discussed with the resident, I agree w/resident's findings & plan, Exceptions are as noted - HPI HPI: 11/05/17 16:15 22 yo F h/o recently diagnosed with RA on steroids x one week here c/o retro orbital headache. says started this am on awakening. has had similar in the past. no formal dgx of migraines. then had emesis today in ED., does feel depressed due to recent diagnosis of RA, dequan si or hi. no other prescription. - Physicial Exam PE: 11/05/17 16:28 awake alert nad. lungs clear bilaterally, heart rrr no mrg. abd soft , bilat lower tenderness to palpation, no rebound no guarding. skin warm and dry. - Medical Decision Making 11/05/17 16:31 22 yo F with headache, n/v. differential gastritis, migraine, dehydration, . uti . appendicitis. plan ct a/p labs ivf, reglan reassess. ua ucg.
[2017-11-05 16:30] LABS: INR 1.18 (0.82-1.09); PROTHROMBIN TIME (PATIENT) 13.3 SEC (9.7-13.0)
[2017-11-05 16:42] LABS: ALBUMIN 3.4 g/dl (3.4-5.0); ALK PHOS 106 U/L (45-117); ANION GAP 8 (8-16); BILIRUBIN,TOTAL 0.3 mg/dL (0.2-1.0); BLOOD UREA NITROGEN 7 mg/dL (7-18); CALCIUM 8.7 mg/dL (8.5-10.1); CHLORIDE 105 mmol/L (98-107); CO2 26 mmol/L (21-32); CREATININE 0.6 mg/dL (0.55-1.02); GLUCOSE,RANDOM 95 mg/dL (74-106); POTASSIUM 3.6 mmol/L (3.5-5.1); SGOT/AST 20 U/L (15-37); SGPT/ALT 14 U/L (12-78); SODIUM 139 mmol/L (136-145); TOT PROT 7.7 g/dl (6.4-8.2)
[2017-11-05] MEDS ORDERED: KETOROLAC TROMETHAMINE 30 MG/1 ML VIAL IVPUSH ONE (16:56)
[2017-11-05] MEDS ORDERED: KETOROLAC TROMETHAMINE 30 MG/1 ML VIAL ONE (17:34)
[2017-11-05 17:45] LABS: URINE APPEARANCE CLEAR; URINE BILIRUBIN NEGATIVE (<2.0 mg/dL); URINE COLOR STRAW; URINE GLUCOSE (UA) NEGATIVE (NEGATIVE); URINE KETONE NEGATIVE (NEGATIVE); URINE LEUK ESTERASE NEGATIVE (NEGATIVE); URINE NITRITE NEGATIVE (NEGATIVE); URINE PROTEIN NEGATIVE (NEGATIVE); URINE UROBILINOGEN NEGATIVE mg/dL (0.2-1.0)
[2017-11-05 18:41] LABS: COCAINE, UR NEGATIVE ng/ml (CUTOFF=300); METHADONE, UR NEGATIVE ng/ml (CUTOFF=300); OPIATES, URI NEGATIVE ng/ml (CUTOFF=300); PHENCYCLIDINE,URINE NEGATIVE ng/ml (CUTOFF=25); URINE AMPHETAMINES NEGATIVE ng/ml (CUTOFF=500); URINE BARBITURATES NEGATIVE ng/ml (CUTOFF=200); URINE BENZODIAZEPINES NEGATIVE ng/ml (CUTOFF=200)
[2017-11-05 20:10] VITALS: BP 126/75; PULSE 75; TEMP 97
--- NOTE | 2017-11-08 00:29 | EKG ---
Test Reason : Blood Pressure : / mmHG Vent. Rate : 090 BPM Atrial Rate : 090 BPM P-R Int : 164 ms QRS Dur : 088 ms QT Int : 392 ms P-R-T Axes : 051 076 035 degrees QTc Int : 479 ms NORMAL SINUS RHYTHM NORMAL ECG WHEN COMPARED WITH ECG OF 22-JUN-2017 19:04, T WAVE VARIATION Confirmed by KEVEN PUENTE MD ([id number]) on 11/08/2017 12:29:39 AM Referred By: Confirmed By:KEVEN PUENTE MD
== END 2017-11-05 20:11 | disposition home or self-care (01) ==
LOC: JER 15:18
PROC: 3E033GC Introduction of Other Therapeutic Substance into Peripheral Vein, Percutaneous Approach (ICD-10-PCS; principal; 2017-11-05)
PROC: 3E0333Z Introduction of Anti-inflammatory into Peripheral Vein, Percutaneous Approach (ICD-10-PCS; 2017-11-05)
DX: G43.909 Migraine, unspecified, not intractable, without status migrainosus (principal); R11.2 Nausea with vomiting, unspecified
CPT/HCPCS: 36415; 74176-TC; 80053; 80307; 81003; 82550; 84443; 84484; 84703; 85025; 85610; 93005; 93010; 96374; 96375; 99281-25; J7030

== ENCOUNTER 2018-09-02 13:36 | Emergency (ER) | payer OTHER ==
[2018-09-02 14:05] VITALS: BP 107/55; PULSE 84; TEMP 98.7; BMI 24.0
--- NOTE | 2018-09-02 14:37 | PDOC ---
History of Present Illness - General Chief Complaint: Pain, Acute Stated Complaint: SHOULDER PAIN Time Seen by Provider: 09/02/18 14:16 History Source: Patient Exam Limitations: Clinical Condition - History of Present Illness Initial Comments: 09/02/18 14:31 Patient with no significant past medical history presented for evaluation of left shoulder pain status post playing around with his sibling 4 days ago and his symptoms and pushing her hitting head and left shoulder on the washing machine home. Patient reports she did not fill pain dating and started feeling pain 3 days ago which has been worsening. Patient reports increased pain with elevation of left arm. Denies numbness or tingling sensation. Denies any other symptoms Timing/Duration: other (3 days) Past History - Past Medical History Allergies/Adverse Reactions: Allergies Allergy/AdvReac Type Severity Reaction Status Date / Time No Known Allergies Allergy Verified 09/02/18 14:01 Home Medications: Ambulatory Orders Methocarbamol [Robaxin -] 500 mg PO BID #14 tablet 09/02/18 Naproxen 500 mg PO BID PRN #20 tablet 09/02/18 COPD: No - Immunization History Immunization Up to Date: Yes - Suicide/Smoking/Psychosocial Hx Smoking History: Never smoked Have you smoked in the past 12 months: No Hx Alcohol Use: No Drug/Substance Use Hx: No Substance Use Type: None Review of Systems - Review of Systems Able to Perform ROS?: Yes Is the patient limited [place] proficient: No Constitutional: No: Weakness HEENTM: No: Symptoms Reported Respiratory: No: Symptoms reported Cardiac (ROS): No: Symptoms Reported ABD/GI: No: Symptoms Reported Musculoskeletal: Yes: Symptoms Reported, See HPI, Joint Pain (left shoulder), Muscle Pain (top and posterior side of left shoulder). No: Muscle Weakness Neurological: No: Numbness, Paresthesia, Tingling All Other Systems: Reviewed and Negative *Physical Exam - Vital Signs Last Vital Signs Temp Pulse Resp BP Pulse Ox 98.7 F 84 18 107/55 L 99 09/02/18 13:45 09/02/18 13:45 09/02/18 13:45 09/02/18 13:45 09/02/18 13:45 - Physical Exam Comments: 09/02/18 14:33 GENERAL: Well developed, well nourished. Awake and alert. No acute distress. CARDIOVASCULAR: Regular rate and rhythm. No murmurs, rubs, or gallops. PULMONARY: No evidence of respiratory distress. Lungs clear to auscultation bilaterally. No wheezing, rales or rhonchi. ABDOMINAL: Soft. Non-tender. Non-distended. No rebound or guarding. No organomegaly. Normoactive bowel sounds MUSCULOSKELETAL : Moderate tenderness over AC joint of left shoulder and posterior scapular of left shoulder. Free range of motion of left shoulder. 5 out of 5 muscle strength to left upper extremity. No bony deformities SKIN: Warm and dry. Normal capillary refill. No ecchymosis or bruising to shoulder. NEUROLOGICAL: Alert, awake, appropriate. No motor deficits in the lower extremities. Gait is normal without ataxia. PSYCHIATRIC: Cooperative. Good eye contact. Appropriate mood and affect. General Appearance: Yes: Nourished, Appropriately Dressed. No: Apparent Distress Moderate Sedation - Procedure Monitoring Vital Signs: Procedure Monitoring Vital Signs Temperature 98.7 F 09/02/18 13:45 Pulse Rate 84 09/02/18 13:45 Respiratory Rate 18 09/02/18 13:45 Blood Pressure 107/55 L 09/02/18 13:45 O2 Sat by Pulse Oximetry (%) 99 09/02/18 13:45 ED Treatment Course - RADIOLOGY Radiology Studies Ordered: Category Date Time Status SHOULDER-LEFT [RAD] Stat Radiology 09/02/18 14:28 Ordered Medical Decision Making - Medical Decision Making 09/02/18 14:35 Patient with no syncope past medical history present with left shoulder pain status post hitting left shoulder on a washing machine a few days ago while playing with a sibling. Exam significant for tenderness to tap of left shoulder and posterior scalp of left shoulder. No visible deformity of shoulder. Normal strength to left shoulder. Symptoms likely shoulder strain with muscle spasm. X-ray of left shoulder ordered to rule out acute pathology. Patient be discharged home on naproxen and Robaxin as needed for pain with orthopedist follow-up as needed. 09/02/18 14:44 x-rays of left shoulder shows no acute pathology. Patient stable for discharge on naproxen and robaxin as needed for pain with advise to do heat therapy with orthopedics follow-up as needed *DC/Admit/Observation/Transfer Diagnosis at time of Disposition: Sprain of left shoulder Qualifiers: Encounter type: initial encounter Shoulder sprain type: unspecified sprain Qualified Code(s): S43.402A - Unspecified sprain of left shoulder joint, initial encounter - Discharge Dispostion Disposition: HOME Condition at time of disposition: Stable Decision to Admit order: No - Prescriptions Prescriptions: Methocarbamol [Robaxin -] 500 mg PO BID #14 tablet Naproxen 500 mg PO BID PRN #20 tablet PRN Reason: shoulder pain - Referrals Referrals: Medardo Sainz DO [Staff Physician] - - Patient Instructions Printed Discharge Instructions: Shoulder Sprain Additional Instructions: Take prescribed medications as needed for pain. apply heat to left shoulder 2-3 times/ day as needed. Follow-up with referred orthopedics if no improvement in 4 days - Post Discharge Activity
[2018-09-02] MEDS ORDERED: IBUPROFEN 400 MG TABLET (FP) PO ONE ×2 (14:43→14:48)
== END 2018-09-02 14:50 | disposition home or self-care (01) ==
LOC: JER 13:36 → JERFT 13:36
DX: S43.402A Unspecified sprain of left shoulder joint, initial encounter (principal); W22.8XXA Striking against or struck by other objects, initial encounter; W51.XXXA Accidental striking against or bumped into by another person, initial encounter; Y93.83 Activity, rough housing and horseplay; Y92.010 Kitchen of single-family (private) house as the place of occurrence of the external cause; Y99.8 Other external cause status
CPT/HCPCS: 73030-TC-LT-FY; 99281-25